=== PATIENT | male | born 1935 | race Caucasian/White ===

== ENCOUNTER 2016-08-14 13:57 | Emergency (ER) | payer MEDICARE, BC ==
[2016-08-14 14:40] VITALS: RESP 16
[2016-08-14] MEDS ORDERED: SODIUM CHLORIDE 0.9% 500 ML IV STA (15:10)
--- NOTE | 2016-08-14 15:22 | ED ---
Abdominal Pain HPI - General Chief Complaint: Abdominal Pain Stated Complaint: Poss UTI Time Seen by Provider: 08/14/16 15:01 Source: patient, family, RN notes reviewed Mode of arrival: wheelchair Limitations: no limitations - History of Present Illness Initial Comments: This is an 80-year-old male presents emergency department with family for possible UTI, confusion. Patient has had multiple urinary tract actions in the past and has a history of bladder cancer treated. Patient states that he does have some dysuria. Family states that he seems a slightly more confused than usual from his normal baseline. Patient does have history of dementia. They' re concerned that he has a urinary tract infection because this is what usually happens. Patient said no fever or chills he states the highest temp at home was 99.8. Denies Abdomen pain no nausea vomiting. Patient has not had much stool output though in the last 10 days only small amounts at a time. - Related Data Home Medications Medication Instructions Recorded Confirmed Ascorbic Acid [Vitamin C] 500 mg PO DAILY 08/14/16 08/14/16 Aspirin [Adult Low Dose Aspirin EC] 81 mg PO HS 08/14/16 08/14/16 Atenolol 100 mg PO DAILY 08/14/16 08/14/16 Atorvastatin [Lipitor] 20 mg PO DAILY 08/14/16 08/14/16 Cholecalciferol [Vitamin D3] 1,000 unit PO DAILY 08/14/16 08/14/16 Docusate [Colace] 100 mg PO DAILY PRN 08/14/16 08/14/16 Furosemide [Lasix] 20 mg PO DAILY 08/14/16 08/14/16 HYDROcodone/APAP 7.5-325MG [[place] 1 tab PO Q6HR PRN 08/14/16 08/14/16 7.5-325] Losartan Potassium [Cozaar] 50 mg PO BID 08/14/16 08/14/16 Memantine HCl [Namenda Xr] 14 mg PO DAILY 08/14/16 08/14/16 Ranitidine HCl 150 mg PO BID PRN 08/14/16 08/14/16 Vitamin E (Dl,Tocopheryl Acet) 400 unit PO DAILY 08/14/16 08/14/16 [Vitamin E] Warfarin [Coumadin] 1.25 mg PO WESA 08/14/16 08/14/16 Warfarin [Coumadin] 2.5 mg PO SUMOTUTHFR 08/14/16 08/14/16 Previous Rx's Medication Instructions Recorded Nitrofurantoin Monohyd/M-Cryst 100 mg PO Q12HR #20 cap 08/14/16 [Macrobid] Allergies Allergy/AdvReac Type Severity Reaction Status Date / Time amiodarone Allergy Dyspnea Verified 08/14/16 15:04 Review of Systems ROS Statement: Those systems with pertinent positive or pertinent negative responses have been documented in the HPI. ROS Other: All systems not noted in ROS Statement are negative. Past Medical History Past Medical History: Atrial Fibrillation, Cancer, Hyperlipidemia, Hypertension Additional Past Medical History / Comment(s): UTI, Bladder cancer,sleep apnea History of Any Multi-Drug Resistant Organisms: None Reported Past Surgical History: No Surgical Hx Reported Past Psychological History: No Psychological Hx Reported Smoking Status: Never smoker Past Alcohol Use History: None Reported Past Drug Use History: None Reported General Exam Limitations: no limitations General appearance: alert, in no apparent distress Neck exam: Present: normal inspection, full ROM. Absent: tenderness, meningismus, lymphadenopathy Respiratory exam: Present: normal lung sounds bilaterally. Absent: respiratory distress, wheezes, rales, rhonchi, stridor Cardiovascular Exam: Present: regular rate, normal rhythm, normal heart sounds. Absent: systolic murmur, diastolic murmur, rubs, gallop, clicks GI/Abdominal exam: Present: soft, normal bowel sounds. Absent: distended, tenderness, guarding, rebound, rigid Back exam: Absent: CVA tenderness (R), CVA tenderness (L) Skin exam: Present: warm, dry, intact, normal color. Absent: rash Course Vital Signs 08/14/16 08/14/16 08/14/16 14:35 16:00 17:03 Temperature 98.2 F 100.2 F H 100.9 F H Pulse Rate 91 Respiratory 16 Rate Blood Pressure 129/82 O2 Sat by Pulse 95 Oximetry Medical Decision Making - Medical Decision Making 80-year-old female presented with family for possible UTI. Patient does have urinary tract infection. Family states that he is slightly off his baseline. Patient was offered admission and family for his UTI. They feel that he would do well outpatient that he is out of town at this time. Patient was given [facility] valeria. I did receive the records from his previous hospital visit in [facility] which showed that he had E. coli ESBL susceptible to Macrobid. Patient is family is requesting he be discharged on same antibiotic as he had recurrent UTIs with resistance. - Lab Data Result diagrams: 08/14/16 15:20 08/14/16 15:20 Lab Results 08/14/16 08/14/16 08/14/16 Range/Units 15:20 15:20 15:20 WBC 13.0 H (3.8-10.6) k/uL RBC 4.97 (4.30-5.90) m/uL Hgb 14.4 (13.0-17.5) gm/dL Hct 45.1 (39.0-53.0) % MCV 90.7 (80.0-100.0) fL MCH 28.9 (25.0-35.0) pg MCHC 31.9 (31.0-37.0) g/dL RDW 15.7 H (11.5-15.5) % Plt Count 160 (150-450) k/uL Neutrophils % 83 % Lymphocytes % 6 % Monocytes % 8 % Eosinophils % 0 % Basophils % 0 % Neutrophils # 10.8 H (1.3-7.7) k/uL Lymphocytes # 0.8 L (1.0-4.8) k/uL Monocytes # 1.0 (0-1.0) k/uL Eosinophils # 0.0 (0-0.7) k/uL Basophils # 0.0 (0-0.2) k/uL Hypochromasia Slight PT 16.8 H (9.0-12.0) sec INR 1.7 (<1.1) APTT 29.2 (22.0-30.0) sec Sodium 144 (137-145) mmol/L Potassium 4.3 (3.5-5.1) mmol/L Chloride 105 (98-107) mmol/L Carbon Dioxide 27 (22-30) mmol/L Anion Gap 12 mmol/L BUN 25 H (9-20) mg/dL Creatinine 1.22 (0.66-1.25) mg/dL Est GFR (MDRD) Af Amer >60 (>60 ml/min/1.73 sqM) Est GFR (MDRD) Non-Af 57 (>60 ml/min/1.73 sqM) Glucose 101 H (74-99) mg/dL Plasma Lactic Acid Eloy (0.7-2.0) mmol/L Calcium 9.2 (8.4-10.2) mg/dL Total Bilirubin 1.5 H (0.2-1.3) mg/dL AST 17 (17-59) U/L ALT 22 (21-72) U/L Alkaline Phosphatase 58 (38-126) U/L Total Protein 6.9 (6.3-8.2) g/dL Albumin 3.8 (3.5-5.0) g/dL Amylase 32 (30-110) U/L Lipase 61 (23-300) U/L Urine Color Urine Appearance (Clear) Urine pH (5.0-8.0) Ur Specific Dewitt (1.001-1.035) Urine Protein (Negative) Urine Glucose (UA) (Negative) Urine Ketones (Negative) Urine Blood (Negative) Urine Nitrite (Negative) Urine Bilirubin (Negative) Urine Urobilinogen (<2.0) mg/dL Ur Leukocyte Esterase (Negative) Urine RBC (0-5) /hpf Urine WBC (0-5) /hpf Urine WBC Clumps (None) /hpf 08/14/16 08/14/16 Range/Units 15:20 15:30 WBC (3.8-10.6) k/uL RBC (4.30-5.90) m/uL Hgb (13.0-17.5) gm/dL Hct (39.0-53.0) % MCV (80.0-100.0) fL MCH (25.0-35.0) pg MCHC (31.0-37.0) g/dL RDW (11.5-15.5) % Plt Count (150-450) k/uL Neutrophils % % Lymphocytes % % Monocytes % % Eosinophils % % Basophils % % Neutrophils # (1.3-7.7) k/uL Lymphocytes # (1.0-4.8) k/uL Monocytes # (0-1.0) k/uL Eosinophils # (0-0.7) k/uL Basophils # (0-0.2) k/uL Hypochromasia PT (9.0-12.0) sec INR (<1.1) APTT (22.0-30.0) sec Sodium (137-145) mmol/L Potassium (3.5-5.1) mmol/L Chloride (98-107) mmol/L Carbon Dioxide (22-30) mmol/L Anion Gap mmol/L BUN (9-20) mg/dL Creatinine (0.66-1.25) mg/dL Est GFR (MDRD) Af Amer (>60 ml/min/1.73 sqM) Est GFR (MDRD) Non-Af (>60 ml/min/1.73 sqM) Glucose (74-99) mg/dL Plasma Lactic Acid Eloy 1.9 (0.7-2.0) mmol/L Calcium (8.4-10.2) mg/dL Total Bilirubin (0.2-1.3) mg/dL AST (17-59) U/L ALT (21-72) U/L Alkaline Phosphatase (38-126) U/L Total Protein (6.3-8.2) g/dL Albumin (3.5-5.0) g/dL Amylase (30-110) U/L Lipase (23-300) U/L Urine Color Red Urine Appearance Turbid (Clear) Urine pH 6.0 (5.0-8.0) Ur Specific Dewitt 1.017 (1.001-1.035) Urine Protein 3+ H (Negative) Urine Glucose (UA) Negative (Negative) Urine Ketones Negative (Negative) Urine Blood Large H (Negative) Urine Nitrite Negative (Negative) Urine Bilirubin Negative (Negative) Urine Urobilinogen 2.0 (<2.0) mg/dL Ur Leukocyte Esterase Large H (Negative) Urine RBC >182 H (0-5) /hpf Urine WBC >182 H (0-5) /hpf Urine WBC Clumps Many H (None) /hpf Disposition Clinical Impression: UTI (urinary tract infection) Disposition: HOME SELF-CARE Condition: Stable Instructions: Urinary Tract Infection in Men (ED) Additional Instructions: Please return to the Emergency Department if symptoms worsen or any other concerns. Prescriptions: Nitrofurantoin Monohyd/M-Cryst [Macrobid] 100 mg PO Q12HR #20 cap Referrals: Nonstaff,Physician [Primary Care Provider] - 1-2 days Time of Disposition: 17:32
[2016-08-14 15:34] LABS: Basophils % (A) 0 %; CH 28.8; CHCM 31.9; Eosinophils % (A) 0 %; HCT 45.1 % (39.0-53.0); HDW 2.74; HGB 14.4 gm/dL (13.0-17.5); Hypochromasia Slight; Luc # (Auto) 0.36; Luc % (Auto) 3; Lymphocytes # (A) 0.8 k/uL (1.0-4.8); Lymphocytes % (A) 6 %; MCH 28.9 pg (25.0-35.0); MCHC 31.9 g/dL (31.0-37.0); MCV 90.7 fL (80.0-100.0); Mean Platelet Volume 7.7; Monocytes % (A) 8 %; Neutrophils # (A) 10.8 k/uL (1.3-7.7); Neutrophils % (A) 83 %; RBC 4.97 m/uL (4.30-5.90); RDW 15.7 % (11.5-15.5); WBC (Perox) 12.44
[2016-08-14 15:45] LABS: INR 1.7 (<1.1); Partial Thromboplastin Time 29.2 sec (22.0-30.0); Prothrombin Time 16.8 sec (9.0-12.0)
[2016-08-14 15:46] LABS: ALT 22 U/L (21-72); AST 17 U/L (17-59); Alkaline Phosphatase 58 U/L (38-126); Amylase 32 U/L (30-110); Anion Gap 12 mmol/L; Blood Urea Nitrogen 25 mg/dL (9-20); Calcium 9.2 mg/dL (8.4-10.2); Carbon Dioxide 27 mmol/L (22-30); Chloride 105 mmol/L (98-107); Glucose 101 mg/dL (74-99); Non-African American GFR(MDRD) 57 (>60 ml/min/1.73 sqM); Potassium 4.3 mmol/L (3.5-5.1); Sodium 144 mmol/L (137-145); Total Bilirubin 1.5 mg/dL (0.2-1.3); Total Protein 6.9 g/dL (6.3-8.2)
[2016-08-14 15:50] LABS: Appearance,Urine Turbid (Clear); Bilirubin,Urine Negative (Negative); Glucose,Urine (UA) Negative (Negative); Ketones,Urine Negative (Negative); Leukocyte Esterase,Urine Large (Negative); Nitrite,Urine Negative (Negative); Particle Count 20636; Protein,Urine 3+ (Negative); RBC,Urine >182 /hpf (0-5); Specific Gravity,Urine 1.017 (1.001-1.035); UA Billing (MACRO vs. MICRO) MICRO; WBC,Urine >182 /hpf (0-5)
--- NOTE | 2016-08-14 16:08 | XR ---
Abdomen HISTORY: Pain, nausea, history of bladder carcinoma Frontal view of the abdomen submitted on 2 images Comparison to chest x-ray same date There is no pneumoperitoneum or bowel obstruction. Hypertrophic changes are present within the spine. Bone mineralization is somewhat reduced. Arthropathy noted in the bilateral hips. IMPRESSION: Nonobstructive bowel gas pattern.
--- NOTE | 2016-08-14 16:09 | XR ---
EXAMINATION TYPE: XR chest 2V DATE OF EXAM: 08/14/2016 COMPARISON: Abdomen same date HISTORY: Abdominal pain, nausea and confusion, bladder carcinoma, hypertension TECHNIQUE: Frontal and lateral views of the chest are obtained. FINDINGS: The heart is enlarged. Mitral annular calcification is present. No pneumothorax or pleural effusion. Pulmonary vascularity and moshe within normal limits. Patient is rotated. Right paratrachea l stripe appears thickened. IMPRESSION: Rotated exam. Cardiomegaly. Difficult to exclude adenopathy.
[2016-08-14] MEDS ORDERED: ACETAMINOPHEN TAB 500 MG TAB PO STA (17:05)
[2016-08-14 18:14] VITALS: BP 116/61; PULSE 98; TEMP 99.8
== END 2016-08-14 18:11 | disposition home or self-care (01) ==
LOC: EC 13:57
DX: N39.0 Urinary tract infection, site not specified (principal); F03.90 Unspecified dementia, unspecified severity, without behavioral disturbance, psychotic disturbance, mood disturbance, and anxiety; E78.5 Hyperlipidemia, unspecified; I10 Essential (primary) hypertension; I48.91 Unspecified atrial fibrillation; Z79.01 Long term (current) use of anticoagulants; Z79.82 Long term (current) use of aspirin; Z79.899 Other long term (current) drug therapy; Z88.8 Allergy status to other drugs, medicaments and biological substances
CPT/HCPCS: 36415; 80053; 82150; 83605; 83690; 85025; 85610; 85730; 81001; 87086; 87077; 87186; 71020; 74000; 99284; 96365; J0696